=== PATIENT | female | born 1970 | race Caucasian/White ===

== ENCOUNTER 2021-05-22 09:59 | Emergency (ER) | payer BC ==
[~2021-05-22] VITALS: Ht 157.5 cm; Wt 65.2 kg
--- NOTE | 2021-05-22 10:23 | NUR ---
PT HAVING SEVERE NUMBNESS/TINGLING/WEAKNESS TO BILAT HANDS/ARMS. R HAND/ARM WEAKER; PT UNABLE TO RAISE R ARM VERY MUCH OFF THE BED. PT STATES HER HANDS ARE STIFF IN THE MORNING, UNABLE TO MOVE THEM MUCH, AND THEY "GRADUALLY RELEASE" DURING THE DAY.
--- NOTE | 2021-05-22 10:24 | NUR ---
ERP AT NOW.
[2021-05-22] MEDS ORDERED: [UNRECOGNIZED DRUG - REMARK] PO (10:41)
[2021-05-22] MEDS ORDERED: CHOLESTEROL MED PO (10:41)
[2021-05-22] MEDS ORDERED: HTN MED PO (10:41)
--- NOTE | 2021-05-22 12:32 | NUR ---
WARM BLANKETS PROVIDED. PT REQUESTING PAIN MEDICATION FOR BILAT HAND PAIN. UNSURE IF SHE WILL BE DRIVING HOME OR NOT. WILL NOTIFY ERP. AWAITING MRI RESULTS.
--- NOTE | 2021-05-22 13:56 | NUR ---
REPORTED TO KUMAR WILLS.
[2021-05-22 14:01] VITALS: BP 139/75
--- NOTE | 2021-05-22 14:01 | NUR ---
ASSUMED CARE OF PATIENT. REPORT GIVEN FROM JOHANN GOOD
== END 2021-05-22 14:55 | disposition home or self-care (01) ==
LOC: ED 14:45
DX: M50.10 Cervical disc disorder with radiculopathy, unspecified cervical region (principal)
CPT/HCPCS: 72141; 99284